=== PATIENT | female | born 2000 | race Caucasian/White ===

== ENCOUNTER 2019-08-05 10:33 | Emergency (ER) | payer BC, OTHER ==
--- NOTE | 2019-08-05 12:16 | UC ---
Respiratory Complaint HPI - HPI Summary HPI Summary: 19 yo female presents with cold symptoms. She tells me that over the last week she has had worsening dry cough, sinus pain/pressure/congestion, and left ear pain with decreased hearing. She has been taking OTC cold medication and dayquill with little relief. She does not smoke. Denies fever, sore throat, SOB , rash, abdominal pain, n/v. - History of Current Complaint Chief Complaint: UCRespiratory Stated Complaint: CHEST CONGESTION Time Seen by Provider: 08/05/19 12:16 Hx Obtained From: Patient Onset/Duration: Gradual Onset Severity Initially: Mild Severity Currently: Moderate Pain Intensity: 4 Pain Scale Used: 0-10 Numeric - Allergies/Home Medications Allergies/Adverse Reactions: Allergies Allergy/AdvReac Type Severity Reaction Status Date / Time amoxicillin [From Augmentin] Allergy Vomiting Verified 08/05/19 12:19 clavulanic acid Allergy Vomiting Verified 08/05/19 12:19 [From Augmentin] PMH/Surg Hx/FS Hx/Imm Hx - Additional Past Medical History Additional PMH: None - Surgical History Surgical History: None - Family History Known Family History: Positive: None - Social History Occupation: Employed Full-time Lives: With Family Alcohol Use: Occasionally Substance Use Type: None Smoking Status (MU): Never Smoked Tobacco Review of Systems All Other Systems Reviewed And Are Negative: No Constitutional: Positive: Negative Skin: Positive: Negative Eyes: Positive: Negative ENT: Positive: Ear Ache, Nasal Discharge, Sinus Congestion, Sinus Pain/ Tenderness Respiratory: Positive: Cough Cardiovascular: Positive: Negative Gastrointestinal: Positive: Negative Neurological: Positive: Negative Psychological: Positive: Negative Physical Exam - Summary Physical Exam Summary: GENERAL: NAD. WDWN. No pain distress. SKIN: No rashes, sores, lesions, or open wounds. HEENT: Head: AT/NC Eyes: EOM intact. Conjunctiva clear without inflammation or discharge. Ears: Hearing grossly normal. B/L TMs occluded by harden brown/ black cerumen. S/p irrigation: TMs intact, no bulging, erythema, or edema. Nose: Nasal mucosa mildly swollen and erythematous with yellow/ clear discharge. TTP maxillary and frontal sinus. Positive post nasal drip Throat: Posterior oropharynx without exudates, erythema, or tonsillar enlargement. Uvula midline. NECK: Supple. Nontender. No lymphadenopathy. CHEST: CTAB. No r/r/w. No accessory muscle use. Breathing comfortably and in no distress. CV: RRR. Pulses intact. NEURO: Alert. PSYCH: Age appropriate behavior. Triage Information Reviewed: Yes Vital Signs: Vital Signs: Temp Pulse Resp BP Pulse Ox 98.5 F 91 18 145/94 94 08/05/19 12:14 08/05/19 12:14 08/05/19 12:14 08/05/19 12:14 08/05/19 12:14 Vital Signs Reviewed: Yes Respiratory Course/Dx - Course Course Of Treatment: Cerumen impaction with successful disimpaction with saline irrigation. Sinusitis. - Differential Dx/Diagnosis Provider Diagnosis: Cerumen impaction, Sinusitis Discharge ED - Sign-Out/Discharge Documenting (check all that apply): Patient Departure All imaging exams completed and their final reports reviewed: No Studies - Discharge Plan Condition: Stable Disposition: HOME Prescriptions: Amoxicillin PO (*) [Amoxicillin 400 MG/5 ML SUSP*] 6 ml PO BID #84 ml Patient Education Materials: Sinusitis (ED), Cerumen Impaction (ED) Referrals: Columba Wu DO [Primary Care Provider] - Additional Instructions: If you develop a fever, shortness of breath, chest pain, new or worsening symptoms - please call your PCP or go to the ED immediately. Your blood pressure was high at todays visit. Please see your primary provider within 4 weeks for recheck and re-evaluation. - Billing Disposition and Condition Condition: STABLE Disposition: Home
[2019-08-05 12:19] VITALS: BP 145/94
[2019-08-05] MEDS ORDERED: Docusate LIQ* 100 MG/10 ML UDC PO ONE (12:27)
== END 2019-08-05 13:20 | disposition home or self-care (01) ==
LOC: UCEAST 10:33
DX: H61.22 Impacted cerumen, left ear (principal); J32.9 Chronic sinusitis, unspecified; Z88.0 Allergy status to penicillin; Z88.1 Allergy status to other antibiotic agents
CPT/HCPCS: 99212; A9270-GY; G0463